=== PATIENT | male | born 1975 | race Two or more races ===

== ENCOUNTER → 2020-11-03 15:00 | Outpatient (CLI) | payer OTHER | END | disposition home or self-care (01) | LOC: PPH VACUNA 15:00 | DX: Z23 Encounter for immunization (principal) ==

== ENCOUNTER 2020-11-24 08:10 | Outpatient (CLI) | payer OTHER | END 2020-11-24 08:13 | disposition home or self-care (01) | LOC: PPH VACUNA 08:10 | DX: Z23 Encounter for immunization (principal) ==